=== PATIENT | female | born 1990 | race Two or more races ===

== ENCOUNTER 2021-06-02 20:20 | Inpatient (IN) | payer OTHER ==
[2021-06-02 21:11] VITALS: BMI 35.3
[2021-06-02] MEDS ORDERED: DINOPROSTONE 10 MG VAGINAL SUPPOSITORY VG ONE (21:30)
[2021-06-02 23:07] LABS: HIV INTERPRETATION NEGATIVE (NEGATIVE)
[2021-06-03] MEDS: ELECTROLYTE-148 SOLN 1,000 ML IV SCH ×3 (00:10→10:00)
[2021-06-03] MEDS ORDERED: BUTORPHANOL TARTRATE 2 MG/ML VIAL IVPB ONE (00:20)
[2021-06-03] MEDS ORDERED: PROMETHAZINE HCL 25 MG/1 ML VIAL IVPB ONE (00:20)
[2021-06-03] MEDS ORDERED: AMPICILLIN - 2 GM in SODIUM CHLORIDE 100 ML IVPB ONE ×2 (00:30→02:30)
[2021-06-03] MEDS ORDERED: BUTORPHANOL TARTRATE 2 MG/ML VIAL ONE (00:39)
[2021-06-03] MEDS ORDERED: PROMETHAZINE HCL 25 MG/1 ML VIAL ONE (00:39)
[2021-06-03] MEDS ORDERED: DINOPROSTONE 10 MG VAGINAL SUPPOSITORY VG ONE (01:15)
[2021-06-03] MEDS ORDERED: AMPICILLIN SODIUM 2 GM VIAL ONE (02:45)
[2021-06-03] MEDS ORDERED: AMPICILLIN SODIUM 1 GM VIAL ONE ×3 (05:49→14:28)
[2021-06-03] MEDS: AMPICILLIN - 1 GM in SODIUM CHLORIDE 100 ML IVPB SCH ×4 (06:30→18:37)
[2021-06-03] MEDS ORDERED: FENTANYL/BUPIVACAINE/NS/PF - PCEA - 50 ML DISP.SYRIN EP ONE ×3 (07:30→15:01)
[2021-06-03] MEDS ORDERED: OXYTOCIN 30 UNITS in 0.9% NS 30 UNIT/500 ML INFUS.BAG IVPB ONE (08:13)
[2021-06-03] MEDS ORDERED: DEXTROSE 5%-LACTATED RINGERS 1,000 ML IV SCH (08:30)
[2021-06-03] MEDS ORDERED: OXYTOCIN 30 UNITS in 0.9% NS 30 UNIT/500 ML INFUS.BAG IVPB SCH (08:30)
[2021-06-03] MEDS ORDERED: NALOXONE HCL 0.4 MG/ML VIAL IVPUSH PRN (08:54)
[2021-06-03] MEDS ORDERED: FENTANYL/BUPIVACAINE/NS/PF - PCEA - 50 ML DISP.SYRIN EP SCH ×2 (09:00→09:21)
[2021-06-03] MEDS ORDERED: OXYTOCIN 20 UNITS in 0.9% NS 20 UNIT/1,000 ML INFUS.BAG IV ONE ×2 (13:51→17:50)
[2021-06-03] MEDS ORDERED: BUPIVACAINE HCL/PF 0.25% (2.5MG/ML) 10 ML VIAL ONE (15:47)
[2021-06-03] MEDS ORDERED: SENNOSIDES/DOCUSATE COMBO (SENNA PLUS) TABLET (UD) PO PRN (17:51)
[2021-06-03] MEDS ORDERED: IBUPROFEN 800 MG/8 ML IJ IVPB PRN (17:51)
[2021-06-03] MEDS ORDERED: ACETAMINOPHEN 325 MG TABLET (FP) PO PRN (17:51)
[2021-06-03] MEDS ORDERED: METHYLERGONOVINE MALEATE 0.2 MG/1 ML AMP IM PRN (17:51)
[2021-06-03] MEDS ORDERED: ACETAMINOPHEN INJECTION 100 ML IVPB ONE (17:53)
[2021-06-03] MEDS ORDERED: SODIUM BICARBONATE 8.4% 50 MEQ/50 ML VIAL ONE (17:53)
[2021-06-03] MEDS ORDERED: OXYTOCIN 20 UNITS in 0.9% NS 20 UNIT/1,000 ML INFUS.BAG IV SCH (18:00)
[2021-06-03] MEDS ORDERED: ceFAZolin SODIUM 1 GM VIAL ONE (18:05)
[2021-06-03] MEDS ORDERED: PHENYLEPHRINE HCL 10 MG/1 ML SINGLE DOSE VIAL ONE (18:09)
[2021-06-03] MEDS ORDERED: OXYTOCIN 10 UNITS/ML VIAL ONE (18:16)
[2021-06-03] MEDS ORDERED: ONDANSETRON 4 MG/2 ML VIAL ONE (18:22)
[2021-06-04] MEDS ORDERED: oxyCODONE HCL 5 MG TABLET PO PRN (05:51)
[2021-06-04 09:25] LABS: BASO % 0.2 % (0-2.0); EOS % 0.7 % (0-4.5); HEMOGLOBIN 11.7 GM/dL (10.7-15.3); LYMPH % 10.2 % (8-40); MCH 31.3 pg (25.7-33.7); MCHC 33.4 g/dl (32.0-36.0); MEAN CELL VOLUME 93.8 fl (80-96); MEAN PLT VOLUME 10.3 fl (7.5-11.1); MONO % 6.3 % (3.8-10.2); NEUT % 82.6 % (42.8-82.8); PLATELET COUNT 137 10^3/uL (134-434); RBC 3.73 M/mm3 (3.60-5.2); RDW 14.4 % (11.6-15.6); WHITE BLOOD COUNT 11.2 K/mm3 (4.0-10.0)
[2021-06-04] MEDS: IBUPROFEN 600 MG TABLET (FP) PO PRN (17:49)
[2021-06-04] MEDS ORDERED: BISACODYL 10 MG SUPP.RECT RC PRN (17:51)
[2021-06-05] MEDS: SIMETHICONE 80 MG TAB.CHEW (FP) PO PRN ×3 (00:05→23:15)
[2021-06-05] MEDS: oxyCODONE HCL 5 MG TABLET PO PRN ×3 (00:05→23:15)
[2021-06-05] MEDS: IBUPROFEN 600 MG TABLET (FP) PO PRN (14:21)
[2021-06-06] MEDS: IBUPROFEN 600 MG TABLET (FP) PO PRN ×2 (04:16→10:50)
[2021-06-06 09:05] VITALS: BP 127/74; PULSE 86; TEMP 97.9
[2021-06-06] MEDS: SIMETHICONE 80 MG TAB.CHEW (FP) PO PRN (10:50)
[2021-06-06 14:08] LABS: POC NITRAZINE POS
== END 2021-06-06 12:20 | disposition home or self-care (01) | DRG 540 ==
LOC: JLDR 20:20 → J3W 06-03 20:32
PROVIDERS: ADMIT Obstetrics & Gynecology; ATTEND Obstetrics & Gynecology
PROC: 10D00Z1 Extraction of Products of Conception, Low, Open Approach (ICD-10-PCS; principal; 2021-06-03)
DX: O66.40 Failed trial of labor, unspecified (principal); O69.81X0 Labor and delivery complicated by cord around neck, without compression, not applicable or unspecified; Z3A.39 39 weeks gestation of pregnancy; Z37.0 Single live birth
CPT/HCPCS: 36415; 83986-QW; 85025; 87389; 88307-TC